=== PATIENT | female | born 1975 | race Caucasian/White ===

== ENCOUNTER 2018-09-20 13:41 | Emergency (ER) | payer BC ==
[2018-09-20 14:52] LABS: URINE BLOOD (Dip) POC Trace-intact (NEGATIVE); URINE GLUCOSE (Dip) POC Negative (NEGATIVE); URINE KETONES (Dip) POC Trace (NEGATIVE); URINE LEUKOCYTE EST (Dip) POC Trace (NEGATIVE); URINE NITRITE (Dip) POC Negative (NEGATIVE); URINE TOTAL PROTEIN POC Trace (NEGATIVE)
== END 2018-09-20 16:50 | disposition home or self-care (01) ==
LOC: FTE 13:41
DX: J02.9 Acute pharyngitis, unspecified (principal); R13.10 Dysphagia, unspecified
CPT/HCPCS: 71046; 81003; 81025; 87880; 99283-25